=== PATIENT | male | born 1955 | race American Indian/Alaskan Native ===

== ENCOUNTER 2020-04-11 07:40 | Day surgery (SDC) | payer OTHER ==
[2020-04-06 12:58] LABS: Hematocrit 41.1 % (35.5-45.6); Hemoglobin 14.5 gm/dl (11.8-15.2); Mean Corpuscular HGB Conc 35 % (32-34); Mean Corpuscular Volume 98 fl (84-94); Platelet Count 231 K/mm3 (140-440); Red Cell Distribution Width 14.3 % (13.2-15.2)
[2020-04-06 13:17] LABS: BUN/Creatinine Ratio 13; Blood Urea Nitrogen 10 mg/dL (9-20); Calcium 9.8 mg/dL (8.4-10.2); Hemolysis Index 15
[2020-04-11] MEDS ORDERED: VANCOMYCIN/NS 1 GM/250 ML 1 GM/250 ML BAG IV NR (08:00)
[2020-04-11] MEDS ORDERED: VANCOMYCIN 1,500 MG in SODIUM CHLORIDE 0.9% 500 ML 500 ML IV SCH (09:30)
--- NOTE | 2020-04-11 10:10 | Anesthesia Day of Surgery ---
Anesthesia Day of Surgery - Day of Surgery Patient Examined: Yes Patient H&P Reviewed: Yes Patient is NPO: Yes
--- NOTE | 2020-04-11 10:11 | Anesthesia Consultation ---
Anesthesia Consult and Med Hx Date of service: 04/11/20 - Airway Anesthetic Teeth Evaluation: Good ROM Head & Neck: Adequate Mental/Hyoid Distance: Adequate Mallampati Class: Class I Intubation Access Assessment: Good - Pre-Operative Health Status ASA Pre-Surgery Classification: ASA3 Proposed Anesthetic Plan: General - Pulmonary Hx Smoking: Yes (STOPPED 1979) Hx Respiratory Symptoms: No (+2FS) Hx Sleep Apnea: Yes (DX SLEEP APNEA , NO CPAP USE) - Cardiovascular System Hx Hypertension: No - Central Nervous System Hx Psychiatric Problems: Yes (Depression) - Endocrine Hx Thyroid Disease: Yes Hx Hypothyroidism: Yes (DAILY MEDS) - Hematic Hx Anemia: No Hx Sickle Cell Disease: No - Other Systems Hx Cancer: Yes (Prostate) Hx Obesity: Yes
[2020-04-11] MEDS ORDERED: ACETAMINOPHEN 500 MG TAB PO NR (10:12)
[2020-04-11] MEDS ORDERED: MAGNESIUM OXIDE 400 MG TAB PO NR (10:12)
[2020-04-11] MEDS ORDERED: LACTATED RINGERS 1,000 ML IV SCH (10:15)
[2020-04-11] MEDS ORDERED: GABAPENTIN 300 MG CAP PO NR (11:00)
[2020-04-11] MEDS ORDERED: MIDAZOLAM 2 MG/2 ML INJ IV NR (11:00)
[2020-04-11] MEDS ORDERED: CELECOXIB 200 MG CAP PO NR (11:00)
[2020-04-11] MEDS ORDERED: LIDOCAINE MPF (2%) 20 MG/1 ML VIAL 5 ML ONE (11:17)
[2020-04-11] MEDS ORDERED: propofoL 200 MG/20 ML VIAL IV ONE (11:18)
[2020-04-11] MEDS ORDERED: fentaNYL 100 MCG/2 ML INJ ONE (11:18)
[2020-04-11] MEDS ORDERED: LIDOCAINE (1%) 10 MG/1 ML VIAL 20 ML MDV ONE (11:35)
[2020-04-11] MEDS ORDERED: BUPIVACAINE/PF (0.25%) 2.5 MG/ML 30 ML VIAL INFILTRATI ONE ×3 (11:35→12:33)
[2020-04-11] MEDS ORDERED: ROCURONIUM 50 MG/5 ML INJ IV ONE ×2 (11:41→12:28)
--- NOTE | 2020-04-11 11:43 | Short Stay Summary ---
Short Stay Documentation Date of service: 04/11/20 - History Principal diagnosis: left inguinal hernia H&P: obtained from office - Allergies and Medications Current Medications: Allergies Penicillins Allergy (Verified 04/04/20 16:16) Rash Home Medications Medication Instructions Recorded Confirmed Last Taken Type Ascorbic Acid [Vitamin C] 1,000 mg PO DAILY 04/04/20 04/04/20 04/10/20 History Aspirin [Adult Aspirin] 81 mg PO DAILY 04/04/20 04/11/20 1 Week Ago History ~04/04/20 AtorvaSTATin [Lipitor] 40 mg PO QHS 04/04/20 04/04/20 04/10/20 History Brimonidine/Timolol 0.2-0.5% 1 drops OP Q12H 04/04/20 04/04/20 04/10/20 History [Combigan 0.2-0.5%] Cetirizine HCl [ZyrTEC 10mg cap] 10 mg PO DAILY 04/04/20 04/04/20 04/10/20 History Cholecalciferol Vit D3 [Vitamin D3 1,000 unit PO QDAY 04/04/20 04/04/20 04/10/20 History 1,000 UNIT TAB] Docusate Sodium [Colace] 100 mg PO BID PRN 04/04/20 04/04/20 04/10/20 History Fluticasone [Flonase] 1 spray NS QDAY 04/04/20 04/04/20 04/10/20 History Latanoprost 0.005% [Xalatan 0.005%] 1 drop OP QPM 04/04/20 04/04/20 04/10/20 History Levothyroxine Sodium [Synthroid] 175 mcg PO DAILY 04/04/20 04/11/20 04/11/20 07:00 History Melatonin [Melatonin 3MG TAB] 3 mg PO PRN PRN 04/04/20 04/04/20 04/10/20 History Meloxicam [Mobic] 15 mg PO DAILY 04/04/20 04/11/20 3 Weeks Ago History ~03/21/20 Multivit-Min/FA/Lycopen/Lutein 1 each PO DAILY 04/04/20 04/04/20 04/10/20 History [Centrum Silver Tablet] PARoxetine HCL [PARoxetine] 40 mg PO QAM 04/04/20 04/04/20 04/10/20 History Vitamin B Complex [Super B-50 1 each PO DAILY 04/04/20 04/04/20 04/10/20 History Complex] Vitamin E 400 unit PO DAILY 04/04/20 04/04/20 04/10/20 History Active Medications Acetaminophen (Acetaminophen 500 Mg Tab) 1,000 mg PO ONCE NR Stop: 04/11/20 12:00 Last Admin: 04/11/20 10:29 Dose: 1,000 mg Documented by: Celecoxib (Celecoxib 200 Mg Cap) 400 mg PO PREOP NR Stop: 04/11/20 12:00 Last Admin: 04/11/20 10:29 Dose: 400 mg Documented by: Gabapentin (Gabapentin 300 Mg Cap) 300 mg PO PREOP NR Stop: 04/11/20 12:00 Last Admin: 04/11/20 10:29 Dose: 300 mg Documented by: Lactated Ringer's (Lactated Ringers) 1,000 mls @ 125 mls/hr IV DIRECT LUCY Last Admin: 04/11/20 10:28 Dose: 125 mls/hr Documented by: Magnesium Oxide (Magnesium Oxide 400 Mg Tab) 400 mg PO ONCE NR Stop: 04/11/20 12:00 Last Admin: 04/11/20 10:29 Dose: 400 mg Documented by: Midazolam HCl (Midazolam 2 Mg/2 Ml Inj) 2 mg IV PREOP NR Stop: 04/11/20 23:59 Last Admin: 04/11/20 10:30 Dose: 2 mg Documented by: - Brief post op/procedure progress note Date of procedure: 04/11/20 Pre-op diagnosis: left inguinal hernia Post-op diagnosis: same Procedure: open left inguinal hernia repair with mesh Anesthesia: GETA, local Findings: Indirect hernia with chronic scarring of sac, cord lipoma Surgeon: SHAWNEE MOSQUEDA Balance And Hairspring Assembler: ERON DUNCAN Estimated blood loss: minimal Pathology: none Condition: stable - Hospital course Hospital course: Pt observed in PACU and discharged to home in stable condition - Disposition Condition at discharge: Good Disposition: DC-01 TO HOME OR SELFCARE Short Stay Discharge Plan Activity: other (No heavy lifting) Diet: regular Wound: open to air, per your surgeon's advice Additional Instructions: SEE PRINTED DISCHARGE INSTRUCTIONS Follow up with: [facility] [Primary Care Provider] - 7 Days SHAWNEE MOSQUEDA DO [Staff Physician] - 14 Days Prescriptions: Celecoxib [celeBREX] 200 mg PO BID #6 capsule Gabapentin 300 mg PO BID #6 capsule oxyCODONE /ACETAMINOPHEN [Percocet 5/325] 1 tab PO Q4HR PRN #25 tab PRN Reason: Pain , Severe (7-10)
[2020-04-11] MEDS ORDERED: ONDANSETRON 4 MG/2 ML INJ ONE (12:02)
[2020-04-11] MEDS ORDERED: SODIUM CHLORIDE 0.9% IRR 1,500 ML BOTTLE IR ONE (12:33)
[2020-04-11] MEDS ORDERED: LIDOCAINE (1%) 10 MG/1 ML VIAL 20 ML MDV INFILTRATI ONE (12:33)
[2020-04-11] MEDS ORDERED: PHENYLEPHRINE/NS 1,000 MCG/10 ML SYRINGE (OR USE) IV ONE (14:00)
[2020-04-11] MEDS ORDERED: NEOSTIGMINE 10MG/10 ML INJ MDV ONE (14:01)
[2020-04-11] MEDS ORDERED: GLYCOPYRROLATE 0.4 MG/2 ML INJ ONE (14:01)
[2020-04-11] MEDS ORDERED: LACTATED RINGERS 1,000 ML ONE (14:04)
--- NOTE | 2020-04-11 14:18 | Short Stay Summary ---
Short Stay Documentation Date of service: 04/11/20 - History Principal diagnosis: left inguinal hernia H&P: obtained from office - Allergies and Medications Current Medications: Allergies Penicillins Allergy (Verified 04/04/20 16:16) Rash Home Medications Medication Instructions Recorded Confirmed Last Taken Type Ascorbic Acid [Vitamin C] 1,000 mg PO DAILY 04/04/20 04/04/20 04/10/20 History Aspirin [Adult Aspirin] 81 mg PO DAILY 04/04/20 04/11/20 1 Week Ago History ~04/04/20 AtorvaSTATin [Lipitor] 40 mg PO QHS 04/04/20 04/04/20 04/10/20 History Brimonidine/Timolol 0.2-0.5% 1 drops OP Q12H 04/04/20 04/04/20 04/10/20 History [Combigan 0.2-0.5%] Cetirizine HCl [ZyrTEC 10mg cap] 10 mg PO DAILY 04/04/20 04/04/20 04/10/20 History Cholecalciferol Vit D3 [Vitamin D3 1,000 unit PO QDAY 04/04/20 04/04/20 04/10/20 History 1,000 UNIT TAB] Docusate Sodium [Colace CAP] 100 mg PO BID PRN 04/04/20 04/04/20 04/10/20 History Fluticasone [Flonase] 1 spray NS QDAY 04/04/20 04/04/20 04/10/20 History Latanoprost 0.005% 1 drop OP QPM 04/04/20 04/04/20 04/10/20 History Levothyroxine Sodium [Synthroid] 175 mcg PO DAILY 04/04/20 04/11/20 04/11/20 07:00 History Melatonin [Melatonin 3MG TAB] 3 mg PO PRN PRN 04/04/20 04/04/20 04/10/20 History Meloxicam [Mobic] 15 mg PO DAILY 04/04/20 04/11/20 3 Weeks Ago History ~03/21/20 Multivit-Min/FA/Lycopen/Lutein 1 each PO DAILY 04/04/20 04/04/20 04/10/20 History [Centrum Silver Tablet] PARoxetine HCL [PARoxetine] 40 mg PO QAM 04/04/20 04/04/20 04/10/20 History Vitamin B Complex [Super B-50 1 each PO DAILY 04/04/20 04/04/20 04/10/20 History Complex] Vitamin E 400 unit PO DAILY 04/04/20 04/04/20 04/10/20 History Celecoxib [celeBREX] 200 mg PO BID #6 capsule 04/11/20 Unknown Rx Gabapentin 300 mg PO BID #6 capsule 04/11/20 Unknown Rx oxyCODONE /ACETAMINOPHEN [Percocet 1 tab PO Q4HR PRN #25 tab 04/11/20 Unknown Rx 5/325] Active Medications Lactated Ringer's (Lactated Ringers) 1,000 mls @ 125 mls/hr IV DIRECT LUCY Last Admin: 04/11/20 10:28 Dose: 125 mls/hr Documented by: Midazolam HCl (Midazolam 2 Mg/2 Ml Inj) 2 mg IV PREOP NR Stop: 04/11/20 23:59 Last Admin: 04/11/20 10:30 Dose: 2 mg Documented by: - Brief post op/procedure progress note Date of procedure: 04/11/20 Pre-op diagnosis: left inguinal hernia Post-op diagnosis: same Short Stay Discharge Plan Follow up with: [facility] [Primary Care Provider] - 7 Days Prescriptions: Celecoxib [celeBREX] 200 mg PO BID #6 capsule Gabapentin 300 mg PO BID #6 capsule oxyCODONE /ACETAMINOPHEN [Percocet 5/325] 1 tab PO Q4HR PRN #25 tab PRN Reason: Pain , Severe (7-10)
[2020-04-11] MEDS ORDERED: oxyCODONE /ACETAMINOPHEN 5-325MG TAB PO PRN (14:24)
--- NOTE | 2020-04-11 15:03 | Operative Report ---
Operative Report Operative Report: Date of procedure: 04/11/20 Pre-op diagnosis: left inguinal hernia Post-op diagnosis: same Procedure: open left inguinal hernia repair with mesh Anesthesia: GETA, local Findings: Indirect hernia with chronic scarring of sac, cord lipoma Surgeon: SHAWNEE MOSQUEDA Welding Machine Operator/Tender: ERON DUNCAN Estimated blood loss: minimal Pathology: none Condition: stable - Hospital course Hospital course: Pt observed in PACU and discharged to home in stable condition HPI and indication: Patient 65-year-old male who was referred to the surgery clinic by the [place] with complaints of a left groin hernia. The hernia was painful at times but reducible. Of note the patient already had a history of an open right inguinal hernia repair along with several complicated abdominal surgical procedures. It was recommended that the left inguinal hernia be repaired. As the patient had multiple abdominal operations in the past was recommended that the surgery be performed open. All risk, benefits, alternatives to surgery were discussed with the patient and questions answered. Consent was obtained. Procedure in detail: Patient was identified in the preoperative area, taken back to the operating room, placed on the operating room table in supine position. After anesthesia was induced the left groin was prepped and draped in usual sterile fashion a timeout performed. Local anesthetic was infiltrated to the skin at the intended incision site. An incision was made in the left groin long-term between the pubic tubercle and ASIS. Dissection was carried down to the skin and subcutaneous tissue using Bovie electrocautery. Dissection was carried out until the external oblique fascia was identified. The fascia was grasped between 2 DeBakey graspers and incised using Metzenbaum scissors. The external oblique fascia along its fibers using Metzenbaum scissors. A cutaneous nerve was seen coursing across the external oblique fascia and was ligated and transected. Hemostat was applied to each leaf of the external oblique fascia and using blunt dissection the cord structures and hernia contents were from the external oblique fascia and encircled. A [place] drain was placed around the structures to aid with retraction. For started by identifying the hernia sac and it from the cord structures using a combination of blunt dissection and electrocautery. This was done very meticulously in order to avoid injury to the cord structures. The cremasteric muscles and hernia sac were chronically scarred to the cord structures. The hernia sac was able to be completely from the cord structures and contained a cord lipoma which was reduced. The vas deferens and other cord structures were identified and protected throughout the dissection. Once the hernia sac was completely reduced the wound was checked for hemostasis which was carefully ensured. It was decided to repair the indirect hernia with a large plug and patch. The preperitoneal space was developed bluntly. The plug was placed through the deep ring into the preperitoneal space and each edge sutured to the shelving edge of the inguinal ligament and the transversalis fascia respectively using 2-0 Prolene interrupted stitches. The patch was placed in the usual fashion with the apex sutured to the pubic tubercle using interrupted 2-0 Prolene stitch. It was sutured laterally to the shelving edge of the inguinal ligament and medially to the transversalis fascia at every 1 cm increments using interrupted 2-0 Prolene stitches. A slit was cut in the mesh to accommodate the cord structures. This was placed around the cord structures and the two leaflets sutured to each other using a 2-0 Prolene stitch. The leaflets were tucked under the external oblique fascia. The repair was examined and satisfactory. The wound was once again checked for hemostasis and irrigated. There was no bleeding seen. The cord structures were placed back in anatomic position and the external oblique fascia reapproximated using 2-0 Vicryl running stitch. Great care was taken to avoid any other identified nerves and the cord structures. The subcutaneous tissue was irrigated and hemostasis ensured. The wound was then closed in layered fashion. The subcutaneous tissue was approximated with a running 3-0 Vicryl stitch. The deep dermal layer was closed with 3-0 Vicryl interrupted stitches. The skin was closed with 4 Monocryl running subcuticular stitch and skin glue. At the end of the case all sponge, instrument, sharp counts were correct x2. Both testicles were palpated in the scrotum in normal anatomic position. The patient was awoken from anesthesia extubated taken to PACU in stable condition.
[2020-04-11 16:43] VITALS: BP 121/79
--- NOTE | 2020-04-11 18:45 | Post Anesthesia Evaluation ---
- Post Anesthesia Evaluation Patient Participated: Yes Airway Patent: Yes Stable Respiratory Function: Yes Nausea/Vomiting: No Temp > 96.8F: Yes Pain Manageable: Yes Adequeate Hydration: Yes Anesthesia Complications: No Block Receding Appropriately: Not Applicable Patient on Ventilator: No
== END 2020-04-11 07:41 | disposition home or self-care (01) ==
LOC: OR 07:40
PROVIDERS: ATTEND Surgery
DX: K40.90 Unilateral inguinal hernia, without obstruction or gangrene, not specified as recurrent (principal); Z20.828 Contact with and (suspected) exposure to other viral communicable diseases; D17.6 Benign lipomatous neoplasm of spermatic cord; H40.9 Unspecified glaucoma; G47.30 Sleep apnea, unspecified; E66.9 Obesity, unspecified; E03.9 Hypothyroidism, unspecified; F32.9 Major depressive disorder, single episode, unspecified; Z88.0 Allergy status to penicillin; Z79.899 Other long term (current) drug therapy; Z79.82 Long term (current) use of aspirin; Z87.891 Personal history of nicotine dependence; Z85.46 Personal history of malignant neoplasm of prostate; Z98.890 Other specified postprocedural states; Z68.30 Body mass index [BMI] 30.0-30.9, adult
CPT/HCPCS: 36415; 49505; 80048; 85027; C1781; J2250; J2370; J2405; J2704; J2710; J3010; J3370; J7040; J7120; U0003